=== PATIENT | male | born 1945 | race Caucasian/White ===

== ENCOUNTER 2021-07-30 09:28 | Outpatient (CLI) | payer MEDICARE | END 2021-07-30 09:29 | disposition home or self-care (01) | LOC: CSHRAD 09:28 | PROVIDERS: ATTEND Family Medicine | DX: R05.9 Cough, unspecified (principal) | CPT/HCPCS: 71046 ==

== ENCOUNTER 2023-05-03 23:38 | Emergency (ER) | payer MEDICARE ==
[2023-05-04 00:23] LABS: #Basophils 0.1 10x3/uL (0.0-0.2); #Monocytes 0.7 10x3/uL (0.0-1.1); #Neutrophils 11.6 10x3/uL (1.5-8.4); %Basophils 0.3 % (0.0-2.0); %Lymphocytes 15.2 % (18.0-47.0); %Monocytes 4.9 % (0.0-10.0); %Neutrophils 77.1 % (40.0-75.0); Hematocrit 45.8 % (38.8-50.0); Hemoglobin 15.6 g/dL (13.5-17.5); Mean Corpuscular HGB CONC 34.1 g/dL (32.0-36.0); Mean Corpuscular Hemoglobin 33.5 pg (27.0-33.0); Mean Corpuscular Volume 98.5 fl (81.2-95.1); Mean Platelet Volume 9.6 fl (7.4-10.4); Platelet Count 241 10x3/uL (150-450); RBC Distribution Width 13.9 % (11.5-14.5); Red Blood Cell (RBC) Count 4.65 10x6/uL (4.32-5.72)
[2023-05-04 00:26] LABS: ALT (SGPT) 22 U/L (8-55); AST (SGOT) 20 U/L (5-34); Albumin 4.2 g/dL (3.4-4.8); Alkaline Phosphatase 71 U/L (40-110); Anion Gap 17 mmol/L (10-20); BUN (Urea Nitrogen) 36 mg/dL (8.4-25.7); Bilirubin, Total 0.4 mg/dL (0.2-1.2); Calc. Creatinine Clearance 0 mL/min (70-130); Calcium 8.7 mg/dL (7.8-10.44); Carbon Dioxide 19 mmol/L (23-31); Chloride 105 mmol/L (98-107); Estimated GFR 40; Globulin 2.1 g/dL (2.4-3.5); Glucose 317 mg/dL (83-110); Lipase 32 U/L (8-78); Protein, Total 6.3 g/dL (5.8-8.1); Sodium 136 mmol/L (136-145)
[2023-05-04 00:32] LABS: Troponin I Less than 0.010 ng/mL (< 0.028)
[2023-05-04] MEDS ORDERED: Morphine 4 MG/ML VIAL ONE (00:50)
[2023-05-04] MEDS ORDERED: Ondansetron PF 4 MG/2 ML Vial ONE (00:50)
[2023-05-04 01:51] LABS: Bilirubin Neg (Negative); Blood, Urine 250 (Negative); Clarity Clear (Clear); Glucose, Urine (Dipstick) 50 mg/dL (Negative); Ketone, Urine Negative (Negative); Leukocyte Negative (Negative); Nitrite Negative (Negative); Protein, Urine (Dipstick) 30 mg/dl (Neg-Trace); Urobilinogen Normal mg/dL (Less than 2)
[2023-05-04 02:05] LABS: Bacteria/HPF 1+ HPF (None Seen); CAUTI Indications for Culture Pelvic or flank pain; RBC/HPF Greater than 50 HPF (0-3); Squamous Epithelial 0-3 HPF (0-3); WBC/HPF 0-3 HPF (0-3)
[2023-05-04 02:07] LABS: Urine Culture Reflex No No
== END 2023-05-04 03:01 | disposition home or self-care (01) ==
LOC: CSHERS 23:38
DX: N13.2 Hydronephrosis with renal and ureteral calculous obstruction (principal); E78.5 Hyperlipidemia, unspecified; I10 Essential (primary) hypertension; I25.2 Old myocardial infarction; E10.40 Type 1 diabetes mellitus with diabetic neuropathy, unspecified; J18.9 Pneumonia, unspecified organism; Z87.891 Personal history of nicotine dependence
CPT/HCPCS: 74176; 80053; 81001; 83605; 83690; 84484; 85025; 93005; 93010; 96374; J2270; J2405

== ENCOUNTER 2024-11-30 08:41 | Outpatient (CLI) | payer MEDICARE | END 2024-11-30 08:42 | disposition home or self-care (01) | LOC: CSHCT 08:41 | PROVIDERS: ATTEND Family Medicine | DX: R41.82 Altered mental status, unspecified (principal); W19.XXXA Unspecified fall, initial encounter | CPT/HCPCS: 70450 ==